=== PATIENT | female | born 1995 | race Caucasian/White ===

== ENCOUNTER 2017-07-05 16:07 | Emergency (ER) | payer BC ==
[~2017-07-05] VITALS: Ht 167.6 cm; Wt 129.1 kg
[2017-07-05 18:54] VITALS: BP 123/87
== END 2017-07-05 18:54 | disposition home or self-care (01) ==
LOC: EME 16:07
DX: M79.652 Pain in left thigh (principal)
CPT/HCPCS: 93971; 99281; 99283